=== PATIENT | female | born 1995 | race Caucasian/White ===

== ENCOUNTER → 2019-01-27 | Outpatient (CLI) | payer OTHER | LOC: BMCIMAGING 09:32 | PROVIDERS: ATTEND Family Medicine | DX: M79.604 Pain in right leg (principal) ==

== ENCOUNTER 2019-03-19 01:35 | Emergency (ER) | payer OTHER ==
[2019-03-19] MEDS ORDERED: KETOROLAC 15 MG/1 ML SDV IVP ONE (01:54)
--- NOTE | 2019-03-19 01:59 | EDPHY ---
H & P Stated Complaint: left pleuritic chest pain Time Seen by Provider: 03/19/19 01:53 HPI/ROS: Chief Complaint: Chest pain HPI: 23-year-old woman developed left upper pleuritic chest pain 6 days ago after swimming. She continued to have the pain to the weekend but yesterday evening became more severe. She did take some ibuprofen for yesterday morning and also took some acetaminophen. It hurts to breathe. There is no pain at rest. Hurts to cough. No fevers or chills. Cough is nonproductive. Does not have a history of similar pain in the past. She does not smoke. She is not on oral contraceptives. No leg pain or swelling. No periods of immobility. No family history of thromboembolic disease or coronary artery disease. ROS: 10 systems were reviewed and were negative except those elements noted in the HPI. PMH: Denies Social History: No smoking, occasional alcohol, no recreational drug use Family History: non-contributory Physical Exam: Gen: Awake, Alert, No Distress HEENT: Nose: no rhinorrhea Eyes: PERRLA, EOMI Mouth: Moist mucosa Neck: Supple, no JVD Chest: Patient does have tenderness in the left sternal border reproducing her presenting complaint, lungs clear to auscultation Heart: S1, S2 normal, no murmur Abd: Soft, non-tender, no guarding Back: no CVA tenderness, no midline tenderness Ext: no edema, non-tender Skin: no rash Neuro: CN II-XII intact, Sensation grossly intact, Strength 5/5 in bilateral upper and lower extremities - Personal History LMP (Females 10-55): 15-21 Days Ago Current Tetanus Diphtheria and Acellular Pertussis (TDAP): Unsure - Medical/Surgical History Hx Asthma: No Hx Chronic Respiratory Disease: No Hx Diabetes: No Hx Cardiac Disease: No Hx Renal Disease: No Hx Cirrhosis: No Hx Alcoholism: No Hx HIV/AIDS: No Hx Splenectomy or Spleen Trauma: No Other PMH: denies - Social History Smoking Status: Never smoked Constitutional: Initial Vital Signs Temperature (C) 36.9 C 03/19/19 01:39 Heart Rate 80 03/19/19 01:39 Respiratory Rate 16 03/19/19 01:39 Blood Pressure 113/71 03/19/19 01:39 O2 Sat (%) 99 03/19/19 01:39 O2 Delivery Mode Room Air Allergies/Adverse Reactions: No Known Allergies Allergy (Unverified 03/19/19 01:41) Home Medications: Medication Instructions Recorded NK [No Known Home Meds] 03/19/19 Medical Decision Making - Diagnostics EKG Interpretation: ECG time 2:05 a.m., sinus rhythm with a rate of 72, normal axis, normal intervals, no acute ST or T-wave changes. Impression: Normal ECG. Imaging Results: EXAM: CT Chest with IV contrast HISTORY: 75mL ISO 370. CP THIS DAY COMPARISON: None submitted. FINDINGS: There is no evidence of a filling defect to suggest pulmonary embolism. Aorta demonstrates no evidence of dissection or aneurysm. Heart is within normal limits in size. Small left pleural effusion and probable adjacent mild compressive atelectasis. No definite air space consolidation is appreciated. The visualized portions of the upper abdomen during the arterial phase of enhancement demonstrates hypodense soft tissue attenuation posterior to the pancreatic head and neck and infiltrating around the celiac axis which is only partially seen and of uncertain etiology but consider acute pancreatitis. Recommend correlation with pancreatic enzymes. Consider also dedicated abdomen pelvis CT to image the full extent of this finding. IMPRESSION: No evidence of pulmonary embolism. Small left pleural effusion and probable adjacent mild compressive atelectasis. No definite air space consolidation is appreciated. Hypodense soft tissue attenuation posterior to the pancreatic head and neck and infiltrating around the celiac axis which is only partially seen and of uncertain etiology but consider acute pancreatitis. Recommend correlation with pancreatic enzymes. Consider also dedicated abdomen pelvis CT to image the full extent of this finding. ELECTRONICALLY SIGNED BY: Awa Serrato MD March 19, 2019 3:37:00 AM MDT ED Course/Re-evaluation: 23-year-old with pleuritic chest pain. D-dimer is elevated. Will obtain CT scan of the chest to rule out PE. CT scan of the chest is negative for PE. She has no abdominal tenderness to suggest pancreatitis given the query on the CT scan. Symptoms consistent with pleurisy. Will discharge with follow-up with primary care, return for any concerns. - Data Points Laboratory Results: Laboratory Results 03/19/19 02:02 03/19/19 02:02 03/19/19 03/19/19 03/19/19 02:02 02:02 02:02 WBC RBC Hgb Hct MCV MCH MCHC RDW Plt Count MPV Neut % (Auto) Lymph % (Auto) Pender % (Auto) Eos % (Auto) Baso % (Auto) Nucleat RBC Rel Count Absolute Neuts (auto) Absolute Lymphs (auto) Absolute Monos (auto) Absolute Eos (auto) Absolute Basos (auto) Absolute Nucleated RBC Immature Gran % Immature Gran # D-Dimer 0.53 ug/mLFEU H ug/mLFEU (0.00-0.50) Sodium 140 mEq/L mEq/L (135-145) Potassium 4.1 mEq/L mEq/L (3.5-5.2) Chloride 104 mEq/L mEq/L (97-110) Carbon Dioxide 27 mEq/l mEq/l (22-31) Anion Gap 9 mEq/L mEq/L (6-14) BUN 13 mg/dL mg/dL (7-23) Creatinine 0.7 mg/dL mg/dL (0.6-1.0) Estimated GFR > 60 Glucose 85 mg/dL mg/dL (70-100) Calcium 9.1 mg/dL mg/dL (8.5-10.4) Beta HCG, Qual NEGATIVE 03/19/19 02:02 WBC 7.56 10^3/uL 10^3/uL (3.80-9.50) RBC 3.96 10^6/uL L 10^6/uL (4.18-5.33) Hgb 12.7 g/dL g/dL (12.6-16.3) Hct 37.4 % L % (38.0-47.0) MCV 94.4 fL fL (81.5-99.8) MCH 32.1 pg pg (27.9-34.1) MCHC 34.0 g/dL g/dL (32.4-36.7) RDW 12.2 % % (11.5-15.2) Plt Count 211 10^3/uL 10^3/uL (150-400) MPV 10.4 fL fL (8.7-11.7) Neut % (Auto) 58.3 % % (39.3-74.2) Lymph % (Auto) 29.1 % % (15.0-45.0) Pender % (Auto) 10.3 % % (4.5-13.0) Eos % (Auto) 1.5 % % (0.6-7.6) Baso % (Auto) 0.7 % % (0.3-1.7) Nucleat RBC Rel Count 0.0 % % (0.0-0.2) Absolute Neuts (auto) 4.41 10^3/uL 10^3/uL (1.70-6.50) Absolute Lymphs (auto) 2.20 10^3/uL 10^3/uL (1.00-3.00) Absolute Monos (auto) 0.78 10^3/uL 10^3/uL (0.30-0.80) Absolute Eos (auto) 0.11 10^3/uL 10^3/uL (0.03-0.40) Absolute Basos (auto) 0.05 10^3/uL 10^3/uL (0.02-0.10) Absolute Nucleated RBC 0.00 10^3/uL 10^3/uL (0-0.01) Immature Gran % 0.1 % % (0.0-1.1) Immature Gran # 0.01 10^3/uL 10^3/uL (0.00-0.10) D-Dimer Sodium Potassium Chloride Carbon Dioxide Anion Gap BUN Creatinine Estimated GFR Glucose Calcium Beta HCG, Qual Medications Given: Discontinued Medications Ketorolac Tromethamine (Toradol) 15 mg IVP EDNOW ONE Stop: 03/19/19 01:55 Last Admin: 03/19/19 02:00 Dose: 15 mg Departure - Departure Disposition: Home, Routine, Self-Care Clinical Impression: Pleurisy Condition: Good Instructions: Pleurisy (ED) Additional Instructions: Take ibuprofen, 600 mg every 8 hr. You may alternate with acetaminophen, 1000 mg every 8 hr. Follow up with primary care physician in 3-4 days if symptoms are not improving. Return to the emergency department for increasing chest pain, shortness of breath, fevers, cough, or any other concerns. Referrals: Ofelia Combs MD [Medical Doctor] - As per Instructions
[2019-03-19 02:11] LABS: PLATELET COUNT 211 10^3/uL (150-400)
[2019-03-19] MEDS ORDERED: IOPAMIDOL (ISOVUE 370) 100 ML BTL IV ONE (02:32)
[2019-03-19 03:43] VITALS: BP 94/69
--- NOTE | 2019-03-19 04:22 | CPEKG ---
Test Reason : OPEN Blood Pressure : / mmHG Vent. Rate : 072 BPM Atrial Rate : 075 BPM P-R Int : 151 ms QRS Dur : 082 ms QT Int : 370 ms P-R-T Axes : 001 049 028 degrees QTc Int : 405 ms Sinus rhythm Confirmed by Tesfaye Encarnacion ([id number]) on 03/19/2019 4:22:15 AM Referred By: Tesfaye Encarnacion Confirmed By:Tesfaye Encarnacion
== END 2019-03-19 03:50 | disposition home or self-care (01) ==
DX: R09.1 Pleurisy (principal)
CPT/HCPCS: 96374; J1885; Q9967